=== PATIENT | female | born 1935 | race Caucasian/White ===

== ENCOUNTER 2021-04-11 11:52 | Outpatient (CLI) | payer MEDICARE | END 2021-04-11 11:53 | disposition home or self-care (01) | LOC: RAD 11:52 | PROVIDERS: ATTEND Internal Medicine | DX: M79.674 Pain in right toe(s) (principal); M79.89 Other specified soft tissue disorders; S92.511A Displaced fracture of proximal phalanx of right lesser toe(s), initial encounter for closed fracture; M19.071 Primary osteoarthritis, right ankle and foot ==

== ENCOUNTER 2021-10-17 06:32 | Day surgery (SDC) | payer MEDICARE ==
[2021-10-16 09:53] VITALS: BMI 29.2
[2021-10-17] MEDS ORDERED: PROPOFOL 200 MG/20 ML VIAL ONE (08:49)
[2021-10-17] MEDS ORDERED: Lidocaine 1% PF 5 ML VIAL ONE (08:49)
== END 2021-10-17 10:10 | disposition home or self-care (01) ==
LOC: SDC 06:32
PROVIDERS: ATTEND Internal Medicine Gastroenterology
PROC: 0D748ZZ Dilation of Esophagogastric Junction, Via Natural or Artificial Opening Endoscopic (ICD-10-PCS; principal; 2021-10-17)
DX: K22.2 Esophageal obstruction (principal); K22.89 Other specified disease of esophagus; K21.9 Gastro-esophageal reflux disease without esophagitis; E11.9 Type 2 diabetes mellitus without complications; I10 Essential (primary) hypertension; Z86.73 Personal history of transient ischemic attack (TIA), and cerebral infarction without residual deficits; Z87.891 Personal history of nicotine dependence; Z79.84 Long term (current) use of oral hypoglycemic drugs; Z79.899 Other long term (current) drug therapy; Z88.0 Allergy status to penicillin; Z88.2 Allergy status to sulfonamides; Z88.5 Allergy status to narcotic agent; Z88.8 Allergy status to other drugs, medicaments and biological substances
CPT/HCPCS: J2704

== ENCOUNTER 2021-10-31 14:16 | Inpatient (IN) | payer MEDICARE ==
[2021-10-31] MEDS ORDERED: Iopamidol-370 76% 500 ML 1 ML ONE (14:39)
[2021-10-31 15:11] LABS: #Lymphocytes 1.4 thou/uL (1.20-3.40); #Monocytes 0.4 thou/uL (0.11-0.59); %Basophils 0.1 % (0.0-1.0); %Eosinophils 0.2 % (0.0-10.0); %Lymphocytes 13.1 % (21.0-51.0); %Monocytes 3.7 % (0.0-10.0); Hemoglobin 12.3 g/dL (12.0-16.0); Mean Corpuscular HGB CONC 33.8 g/dL (32.0-36.0); Mean Corpuscular Hemoglobin 30.6 pg (27.0-31.0); Mean Corpuscular Volume 90.7 fL (78.0-98.0); Platelet Count 385 thou/uL (130-400); RBC Distribution Width 11.8 % (11.5-14.5); Red Blood Cell (RBC) Count 4.01 mill/uL (4.20-5.40); White Blood Cell (WBC) Count 10.9 thou/uL (4.8-10.8)
[2021-10-31 15:44] LABS: ALT (SGPT) Less than 7 U/L (8-55); AST (SGOT) 7 U/L (5-34); Alkaline Phosphatase 96 U/L (40-110); Anion Gap 19 mmol/L (10-20); BUN (Urea Nitrogen) 19 mg/dL (9.8-20.1); Bilirubin, Total 0.6 mg/dL (0.2-1.2); Calc. Creatinine Clearance 0 mL/min (70-130); Calcium 9.5 mg/dL (7.8-10.44); Carbon Dioxide 25 mmol/L (23-31); Chloride 100 mmol/L (98-107); Globulin 3.5 g/dL (2.4-3.5); Glucose 169 mg/dL (83-110); Potassium 4.3 mmol/L (3.5-5.1); Protein, Total 7.5 g/dL (5.8-8.1); Sodium 140 mmol/L (136-145)
[2021-10-31] MEDS ORDERED: Cefepime 2 GM VIAL ONE (17:02)
[2021-10-31] MEDS ORDERED: Proparacaine 0.5% Opth 15 ML BOT ONE (17:03)
[2021-10-31] MEDS ORDERED: Fluorescein Opthalmic Strip ONE ×2 (17:03→17:13)
[2021-10-31] MEDS ORDERED: diphenhydrAMINE 50 MG/ML VIAL ONE (17:04)
[2021-10-31 18:03] LABS: Lactic Acid 1.6 mmol/L (0.5-2.2)
[2021-10-31] MEDS ORDERED: Vancomycin 1 GM/200 ML BAG ONE (18:03)
[2021-10-31] MEDS ORDERED: Fentanyl 100 MCG/2 ML VIAL ONE (18:43)
[2021-10-31] MEDS ORDERED: Ondansetron PF 4 MG/2 ML Vial IVP PRN (21:50)
[2021-10-31] MEDS ORDERED: Bisacodyl 5 MG TAB PO PRN (21:50)
[2021-10-31] MEDS ORDERED: Dextrose 5% in Water 1,000 ML IV PRN (21:50)
[2021-10-31] MEDS ORDERED: Zolpidem Tartrate 5 MG TAB PO PRN (21:50)
[2021-10-31] MEDS ORDERED: HYDROcodone/Acetaminophen 5/325 mg Tablet PO PRN (21:50)
[2021-10-31] MEDS ORDERED: Acetaminophen 325 MG TAB PO PRN (21:50)
[2021-10-31] MEDS ORDERED: Dextrose 50% Abboject 50 ML SYRINGE SLOW IVP PRN (21:50)
[2021-10-31] MEDS ORDERED: HumaLOG 300 UNITS/3 ML VIAL SC PRN ×2 (21:50)
[2021-10-31] MEDS ORDERED: hydrALAZINE 20 MG/ML VIAL SLOW IVP PRN (21:53)
[2021-10-31] MEDS ORDERED: diphenhydrAMINE 25 MG CAP PO PRN (21:54)
[2021-10-31] MEDS ORDERED: Vancomycin 1 GM in Premix Bag 1 BAG IVPB SCH (22:00)
[2021-10-31 22:57] VITALS: BMI 27.6
[2021-11-01 06:28] LABS: #Eosinphils 0.1 thou/uL (0.0-0.7); #Lymphocytes 2.8 thou/uL (1.20-3.40); #Neutrophils 7.8 thou/uL (1.40-6.50); %Basophils 0.1 % (0.0-1.0); %Eosinophils 0.4 % (0.0-10.0); %Lymphocytes 24.2 % (21.0-51.0); %Monocytes 8.7 % (0.0-10.0); %Neutrophils 66.5 % (42.0-75.0); Hemoglobin 11.4 g/dL (12.0-16.0); Mean Corpuscular HGB CONC 33.2 g/dL (32.0-36.0); Mean Corpuscular Hemoglobin 31.4 pg (27.0-31.0); Mean Corpuscular Volume 94.5 fL (78.0-98.0); Mean Platelet Volume 7.3 fL (7.4-10.4); Platelet Count 337 thou/uL (130-400); RBC Distribution Width 11.8 % (11.5-14.5); Red Blood Cell (RBC) Count 3.63 mill/uL (4.20-5.40); White Blood Cell (WBC) Count 11.6 thou/uL (4.8-10.8)
[2021-11-01 06:39] LABS: ALT (SGPT) Less than 7 U/L (8-55); AST (SGOT) 9 U/L (5-34); Albumin 3.6 g/dL (3.4-4.8); Alkaline Phosphatase 78 U/L (40-110); Anion Gap 14 mmol/L (10-20); BUN (Urea Nitrogen) 15 mg/dL (9.8-20.1); Bilirubin, Total 0.6 mg/dL (0.2-1.2); Calc. Creatinine Clearance 61 mL/min (70-130); Calcium 8.6 mg/dL (7.8-10.44); Carbon Dioxide 29 mmol/L (23-31); Chloride 104 mmol/L (98-107); Globulin 3.1 g/dL (2.4-3.5); Glucose 138 mg/dL (83-110); Potassium 3.6 mmol/L (3.5-5.1); Protein, Total 6.7 g/dL (5.8-8.1); Sodium 143 mmol/L (136-145)
[2021-11-01] MEDS: Enoxaparin Sodium 40 MG/0.4 ML SYRINGE SC SCH (10:00)
[2021-11-01] MEDS: Miconazole 2% Cream 30 GM TUBE TOP SCH ×2 (10:01→21:32)
[2021-11-01] MEDS: Nystatin 500,000 UNITS/5 ML UDCUP SSW SCH ×2 (16:50→21:29)
[2021-11-01] MEDS: diphenhydrAMINE 25 MG CAP PO SCH ×2 (16:50→21:30)
[2021-11-01] MEDS: metFORMIN XR 500 MG TAB PO SCH (16:51)
[2021-11-01] MEDS ORDERED: Vancomycin 1 GM in Premix Bag 1 BAG IVPB SCH (18:00)
[2021-11-01 19:30] LABS: Bacteria/HPF None Seen HPF (None Seen); Bilirubin Negative (Negative); Blood, Urine Negative (Negative); Clarity Clear (Clear); Glucose, Urine (Dipstick) Normal (Negative); Ketone, Urine 20 mg/dL (Negative); Leukocyte Negative Leu/uL (Negative); Nitrite Negative (Negative); Protein, Urine (Dipstick) 10 mg/dL (Neg-Trace); RBC/HPF 0-3 HPF (0-3); Specific Gravity, Urine 1.019 (1.002-1.036); Squamous Epithelial None Seen HPF (0-3); Urobilinogen Normal mg/dL (Less than 2); WBC/HPF 0-3 HPF (0-3); pH, Urine 6.5 (5.0-9.0)
[2021-11-01] MEDS: Melatonin 3 MG TAB PO SCH (21:29)
[2021-11-01] MEDS: Artificial Tear Sol 15 ML BOT EA EYE SCH (21:29)
[2021-11-01] MEDS: Famotidine 20 MG TAB PO SCH (21:30)
[2021-11-01] MEDS: traMADol HCl 50 MG TAB PO SCH (21:30)
[2021-11-01] MEDS: traZODone HCl 50 MG TAB PO SCH (21:30)
[2021-11-01] MEDS: Hydrocortisone 1% Cream 30 GM TUBE TOP SCH (21:31)
[2021-11-02] MEDS: diphenhydrAMINE 25 MG CAP PO SCH ×4 (04:30→21:40)
[2021-11-02] MEDS ORDERED: Lorazepam 2 MG/ML VIAL ONE (08:19)
[2021-11-02] MEDS ORDERED: traZODone HCl 50 MG TAB PO SCH (09:00)
[2021-11-02] MEDS ORDERED: Lorazepam 2 MG/ML VIAL SLOW IVP PRN (09:08)
[2021-11-02] MEDS: metFORMIN XR 500 MG TAB PO SCH ×2 (09:22→17:51)
[2021-11-02] MEDS: Doxycycline 100 MG CAP PO SCH ×2 (09:23→21:39)
[2021-11-02] MEDS: Cholecalciferol 1,000 UNITS (25 MCG) TAB PO SCH (09:23)
[2021-11-02] MEDS: Ascorbic Acid 500 mg Chewable Tablet PO SCH (09:23)
[2021-11-02] MEDS: Enoxaparin Sodium 40 MG/0.4 ML SYRINGE SC SCH (09:23)
[2021-11-02] MEDS: Artificial Tear Sol 15 ML BOT EA EYE SCH ×2 (09:23→21:42)
[2021-11-02] MEDS: ALPRAZolam 0.25 MG TAB PO SCH (09:23)
[2021-11-02] MEDS: Famotidine 20 MG TAB PO SCH ×2 (09:23→21:40)
[2021-11-02] MEDS: Hydrocortisone 1% Cream 30 GM TUBE TOP SCH ×2 (09:23→21:42)
[2021-11-02] MEDS: Amlodipine 5 MG TAB PO SCH (09:23)
[2021-11-02] MEDS: Citalopram 20 MG TAB PO SCH (09:23)
[2021-11-02] MEDS: Miconazole 2% Cream 30 GM TUBE TOP SCH ×2 (09:24→21:42)
[2021-11-02] MEDS: Oxybutynin ER 5 MG TAB PO SCH (09:24)
[2021-11-02] MEDS: Polyethylene Glycol OPTH DROP 15 ML BOT EA EYE SCH (09:24)
[2021-11-02] MEDS: Nystatin 500,000 UNITS/5 ML UDCUP SSW SCH ×4 (09:24→21:41)
[2021-11-02] MEDS: traMADol HCl 50 MG TAB PO SCH ×2 (09:24→21:40)
[2021-11-02 17:17] LABS: #Eosinphils 0.1 thou/uL (0.0-0.7); #Lymphocytes 2.4 thou/uL (1.20-3.40); #Monocytes 0.8 thou/uL (0.11-0.59); #Neutrophils 6.8 thou/uL (1.40-6.50); %Basophils 0.4 % (0.0-1.0); %Eosinophils 0.5 % (0.0-10.0); %Lymphocytes 23.9 % (21.0-51.0); %Monocytes 7.8 % (0.0-10.0); %Neutrophils 67.4 % (42.0-75.0); Hemoglobin 12.8 g/dL (12.0-16.0); Mean Corpuscular HGB CONC 32.5 g/dL (32.0-36.0); Mean Corpuscular Hemoglobin 30.9 pg (27.0-31.0); Mean Corpuscular Volume 95.1 fL (78.0-98.0); Platelet Count 364 thou/uL (130-400); RBC Distribution Width 11.8 % (11.5-14.5); Red Blood Cell (RBC) Count 4.16 mill/uL (4.20-5.40); White Blood Cell (WBC) Count 10.1 thou/uL (4.8-10.8)
[2021-11-02 17:38] LABS: Anion Gap 17 mmol/L (10-20); BUN (Urea Nitrogen) 11 mg/dL (9.8-20.1); Calc. Creatinine Clearance 65 mL/min (70-130); Calcium 9.1 mg/dL (7.8-10.44); Carbon Dioxide 26 mmol/L (23-31); Chloride 104 mmol/L (98-107); Glucose 204 mg/dL (83-110); Potassium 3.5 mmol/L (3.5-5.1); Sodium 143 mmol/L (136-145)
[2021-11-02] MEDS: traZODone HCl 50 MG TAB PO SCH (21:39)
[2021-11-02] MEDS: Melatonin 3 MG TAB PO SCH (21:40)
[2021-11-03] MEDS: diphenhydrAMINE 25 MG CAP PO SCH ×2 (04:55→10:20)
[2021-11-03 08:04] VITALS: BP 147/82; TEMP 98.2
[2021-11-03] MEDS: ALPRAZolam 0.25 MG TAB PO SCH (08:53)
[2021-11-03] MEDS: Oxybutynin ER 5 MG TAB PO SCH (08:53)
[2021-11-03] MEDS: metFORMIN XR 500 MG TAB PO SCH (08:53)
[2021-11-03] MEDS: Enoxaparin Sodium 40 MG/0.4 ML SYRINGE SC SCH (08:53)
[2021-11-03] MEDS: Doxycycline 100 MG CAP PO SCH (08:53)
[2021-11-03] MEDS: Famotidine 20 MG TAB PO SCH (08:54)
[2021-11-03] MEDS: traMADol HCl 50 MG TAB PO SCH (08:54)
[2021-11-03] MEDS: Amlodipine 5 MG TAB PO SCH (08:54)
[2021-11-03] MEDS: Cholecalciferol 1,000 UNITS (25 MCG) TAB PO SCH (08:55)
[2021-11-03] MEDS: Citalopram 20 MG TAB PO SCH (08:55)
[2021-11-03] MEDS: Nystatin 500,000 UNITS/5 ML UDCUP SSW SCH (08:55)
[2021-11-03] MEDS: Hydrocortisone 1% Cream 30 GM TUBE TOP SCH (08:55)
[2021-11-03] MEDS: Ascorbic Acid 500 mg Chewable Tablet PO SCH (08:55)
[2021-11-03] MEDS: Artificial Tear Sol 15 ML BOT EA EYE SCH (08:56)
[2021-11-03] MEDS: Polyethylene Glycol OPTH DROP 15 ML BOT EA EYE SCH (08:56)
[2021-11-03] MEDS: Miconazole 2% Cream 30 GM TUBE TOP SCH (08:57)
[2021-11-03] MEDS ORDERED: Sodium Chloride 0.65% Nasal 44 ML BOT EA NARE PRN (09:56)
== END 2021-11-03 13:11 | DRG 603 ==
LOC: ERS 14:16 → OBSVTOIN 20:38 → T4-A 20:38
PROVIDERS: ADMIT Family Medicine; ATTEND Family Medicine
DX: L03.211 Cellulitis of face (principal); Z66 Do not resuscitate; Z20.822 Contact with and (suspected) exposure to COVID-19; L03.313 Cellulitis of chest wall; N17.9 Acute kidney failure, unspecified; E87.2 Acidosis; B37.0 Candidal stomatitis; F05 Delirium due to known physiological condition; F03.91 Unspecified dementia, unspecified severity, with behavioral disturbance; L03.114 Cellulitis of left upper limb; L03.113 Cellulitis of right upper limb; L23.9 Allergic contact dermatitis, unspecified cause; L01.00 Impetigo, unspecified; I25.10 Atherosclerotic heart disease of native coronary artery without angina pectoris; E11.9 Type 2 diabetes mellitus without complications; K21.9 Gastro-esophageal reflux disease without esophagitis; F32.A Depression, unspecified; E78.5 Hyperlipidemia, unspecified; F41.0 Panic disorder [episodic paroxysmal anxiety]; E03.9 Hypothyroidism, unspecified; R91.8 Other nonspecific abnormal finding of lung field; J32.9 Chronic sinusitis, unspecified; L28.1 Prurigo nodularis; Z79.899 Other long term (current) drug therapy; Z86.73 Personal history of transient ischemic attack (TIA), and cerebral infarction without residual deficits; Z88.5 Allergy status to narcotic agent; Z88.0 Allergy status to penicillin; Z88.2 Allergy status to sulfonamides; Z88.8 Allergy status to other drugs, medicaments and biological substances; Z79.84 Long term (current) use of oral hypoglycemic drugs; Z98.890 Other specified postprocedural states; Z90.710 Acquired absence of both cervix and uterus; Z82.3 Family history of stroke; Z82.49 Family history of ischemic heart disease and other diseases of the circulatory system; Z87.891 Personal history of nicotine dependence; Z78.1 Physical restraint status
CPT/HCPCS: 36415; 36416; 70487; 71046; 80048; 80053; 81001; 83605; 85025; 87040; J0692; J1200; J1650; J1815; J2060; J3010; J3370; U0003; U0005

== ENCOUNTER 2022-06-28 12:02 | Outpatient (CLI) | payer MEDICARE | END 2022-06-28 12:03 | disposition home or self-care (01) | LOC: BICCT 12:02 | PROVIDERS: ATTEND Urology | DX: N20.0 Calculus of kidney (principal); S22.080D Wedge compression fracture of T11-T12 vertebra, subsequent encounter for fracture with routine healing; I70.90 Unspecified atherosclerosis; K57.30 Diverticulosis of large intestine without perforation or abscess without bleeding; M47.816 Spondylosis without myelopathy or radiculopathy, lumbar region; Z90.710 Acquired absence of both cervix and uterus; Z90.49 Acquired absence of other specified parts of digestive tract | CPT/HCPCS: 74176 ==